=== PATIENT | male | born 1995 | race Caucasian/White ===

== ENCOUNTER 2019-01-29 03:42 | Emergency (ER) | payer OTHER, SELFPAY ==
[2019-01-29 03:43] VITALS: BP 139/88; PULSE 83; RESP 18; TEMP 36.7; O2SAT 98; BMI 27.6
--- NOTE | 2019-01-29 04:07 | RAD_ITS ---
HISTORY: Pain, patient felt like shoulder popped ou of joint, now back in place but bones feel like they are popping. EXAMINATION/TECHNIQUE: XR left shoulder 4 views COMPARISON: None FINDINGS: No fracture, dislocation, or bony abnormality. The left glenohumeral relationship appears normal. The left AC joint is preserved. No soft tissue calcifications. RAD/Shoulder min 2 Views IMPRESSION: Normal exam, left shoulder. at 0453 Reported and signed by: Alex Licona MD Electronically Signed: Alex Licona, at 4:52 EDT Tel , Service support ,
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
[2019-01-29] MEDS: Naproxen 500 MG Tablet PO (05:10)
[2019-01-29 05:11] VITALS: BP 129/80; PULSE 67; RESP 14; O2SAT 100
== END 2019-01-29 05:11 | disposition home or self-care (01) ==
PROVIDERS: Emergency Provider Emergency Medicine
DX: M25.512 Pain in left shoulder (principal); Z88.5 Allergy status to narcotic agent
CPT/HCPCS: 73030; 99283